=== PATIENT | female | born 1935 | race Caucasian/White ===

== ENCOUNTER → 2018-04-20 12:04 | Outpatient (CLI) | payer MEDICARE, SELFPAY ==
[2018-04-20 12:48] LABS: Albumin, Serum 4.1 g/dL (3.2-5.0); BUN 20 mg/dL (7-18); BUN/Creat Ratio 18.3 RATIO (10-20); Calcium,Total 8.7 mg/dL (8.5-10.1); Chloride 95 mmol/L (98-107); Creatinine, Serum 1.09 mg/dL (0.55-1.02); EST Glomerular Filtration Rate 51 mL/min (>60); Est Glom Filt Rate - Afr Amer 62 mL/min (>60); Glucose 101 mg/dL (74-106); Phosphorus 2.7 mg/dL (2.5-4.9); Potassium 4.2 mmol/L (3.5-5.1); Sodium Level 128 mmol/L (136-145)
[2018-04-20 13:04] LABS: Protein, Urine (Random) < 6.0 mg/dL (<11.9)
== END ==
PROVIDERS: Visit Provider Internal Medicine Nephrology
DX: E11.22 Type 2 diabetes mellitus with diabetic chronic kidney disease (principal); N18.9 Chronic kidney disease, unspecified; N17.9 Acute kidney failure, unspecified
CPT/HCPCS: 36415; 80069; 82570; 84156

== ENCOUNTER → 2018-05-02 12:27 | Outpatient (CLI) | payer MEDICARE, SELFPAY ==
[2018-05-02 16:32] LABS: Urine Sodium 43 mmol/L (Not Establ.)
[2018-05-02 16:37] LABS: Anion Gap 13 (5-15); BUN 18 mg/dL (7-18); BUN/Creat Ratio 17.1 RATIO (10-20); Calcium,Total 8.9 mg/dL (8.5-10.1); Chloride 99 mmol/L (98-107); Creatinine, Serum 1.05 mg/dL (0.55-1.02); EST Glomerular Filtration Rate 53 mL/min (>60); Est Glom Filt Rate - Afr Amer 65 mL/min (>60); Glucose 102 mg/dL (74-106); Potassium 3.9 mmol/L (3.5-5.1); Sodium Level 134 mmol/L (136-145)
== END ==
PROVIDERS: Visit Provider Internal Medicine Nephrology
DX: N17.9 Acute kidney failure, unspecified (principal); E87.1 Hypo-osmolality and hyponatremia
CPT/HCPCS: 36415; 80048; 84300

== ENCOUNTER → 2018-10-24 11:01 | Outpatient (CLI) | payer MEDICARE, SELFPAY ==
[2018-10-24 13:28] LABS: Urine Sodium 47 mmol/L (Not Establ.)
[2018-10-24 13:54] LABS: Albumin, Serum 4.3 g/dL (3.2-5.0); BUN 18 mg/dL (7-18); BUN/Creat Ratio 15.4 RATIO (10-20); Calcium,Total 9.1 mg/dL (8.5-10.1); Chloride 102 mmol/L (98-107); Creatinine, Serum 1.17 mg/dL (0.55-1.02); EST Glomerular Filtration Rate 47 mL/min (>60); Est Glom Filt Rate - Afr Amer 57 mL/min (>60); Glucose 94 mg/dL (74-106); Phosphorus 2.8 mg/dL (2.5-4.9); Potassium 3.9 mmol/L (3.5-5.1); Sodium Level 137 mmol/L (136-145)
--- OUTSIDE RECORDS SUMMARY | 2019-01-25 19:49 | XMS RPT_ITS ---
:1935 Author Organization OHIP Care Team Providers Name Role Phone Laurie Hopkins Attending Unavailable Laurie Hopkins Referring Unavailable Laurie Hopkins Primary Care Unavailable Laurie Hopkins Attending Unavailable Laurie Hopkins Referring Unavailable Laurie Hopkins Primary Care Unavailable Laurie Hopkins Referring Unavailable Laurie Hopkins Primary Care Unavailable Rene Coffey Attending Unavailable Cely Rader Attending Unavailable Cely Rader Attending Unavailable Cely Rader Attending Unavailable PROBLEMS PROBLEMS DATE TYPE CONDITION / CODE ATTENDING STATUS SOURCE 10/30/2018 Unknown E87.1 - Cely Rader Active [facility]-osmol[facility] and hyponatremia / Hospital E87.1(ICD-10) Repository 07/20/2018 Admitting Encntr screen Laurie Hopkins Active [facility] Diagnosis mammogram for System malignant neoplasm Repository of breast / Z12.31(ICD-10) 07/20/2018 Admitting Asymptomatic Laurie Hopkins Active [facility] Diagnosis menopausal state / System Z78.0(ICD-10) Repository 06/30/2018 Admitting Occlusion and Rene Coffey Active [facility] Diagnosis stenosis of System bilateral carotid Repository arteries / I65.23(ICD-10) 05/02/2018 Unknown N17.9 - Acute Cely Rader Active [place] kidney failure, Community unspecified / Hospital N17.9(ICD-10) Repository 11/30/2017 Admitting Pain in left foot Laurie Hopkins [facility] Diagnosis / M79.672(ICD-10) System Repository PROCEDURES PROCEDURES No Procedure Records FoundRESULTS RESULTS URINE SODIUM Collected: 10/24/2018 Status: F Source: [place] 11:10 AM [facility] TYPE CODE TESTS RESULT OUT OF RANGE REFERENCE UNITS LAB L501.5500 Not Establ. mmol/L Normal UR NA 47 Performed By: #### L501.5500 #### [facility] [address] [place], [address] RENAL PROFILE Collected: 10/24/2018 Status: F Source: [place] 11:02 AM [facility] [facility] TYPE CODE TESTS RESULT OUT OF RANGE REFERENCE UNITS LAB L501.0100 74-106 mg/dL Normal GLU 94 Result Comment: Please note revised GLUCOSE reference range effective 2017. LAB L501.1000 7-18 mg/dL Normal BUN 18 LAB L501.1100 0.55-1.02 mg/dL High CREAT,SERUM 1.17 Result Comment: The validity of the calculated GFR AND GFRAA in patients over 70 years has not been determined. Clinical correlation is essential. LAB L501.1110 >60 mL/min Low EST GFR 47 Result Comment: Non- GFR Calc LAB L501.1115 >60 mL/min Low EST GFR - AA 57 Result Comment: GFR Calc LAB L501.1300 10-20 RATIO Normal BUN/CRE 15.4 LAB L501.1800 3.2-5.0 g/dL Normal ALB 4.3 LAB L501.2200 8.5-10.1 mg/dL CA Normal 9.1 LAB L501.2300 2.5-4.9 mg/dL Normal PHOS 2.8 LAB L501.5300 136-145 mmol/L NA Normal 137 LAB L501.5600 3.5-5.1 mmol/L K Normal 3.9 LAB L501.5900 98-107 mmol/L CL Normal 102 LAB L501.6100 21.0-32.0 mmol/L Normal CO2 23.0 Performed By: #### L500.3600 #### [facility] [address] [place], [address] OT BONE DENSITY DEXA Observed: 07/21/2018 Status: F Source: [facility] AXIAL SKELETON 4:13 AM SYSTEM REPOSITORY Patient Name: RONNELL ESCALANTE Bone Density Exam Date/Time 07/20/2018 11:35:00 EDT Exam OT Bone Density DEXA Axial Skeleton Ordering Physician LAURIE HOPKINS Accession Number [id number] CPT4 Codes 83619 () Reason For Exam M85.80 Osteopenia Report DXA BONE DENSITOMETRY: CLINICAL INDICATION: Asymptomatic post-menopausal status COMPARISON: 05/13/2016 TECHNIQUE: Quantitative bone mineral densitometry of the hip and lumbar spine was performed with a dual energy x-ray observed absorptiometry device - HoloBuildFax QDR 4500 C. Regions of interest were obtained through the left proximal femur and compared to the normal value of the young adult. Regions of interest were also obtained through the lumbar vertebrae with an average value determined and compared with the young adult. The measured bone density minus the bone density of the young normal reference divided by the reference standard deviation is expressed as the T score. Using the same formula adjusting the reference density and standard deviation for age and race determines the Z score. According to World Health Organization criteria: T-score of -1.0 or higher is normal. T-score between -1.0 and -2.5 is low bone density or osteopenia. T-score of -2.5 or lower is abnormally low, compatible with osteoporosis. T-score of -2.5 or less plus fragility fracture indicates severe osteoporosis. FINDINGS: Hip: Femoral neck Density: 0.626 g/cm2. T-score: -2.0 Z-score: 0.4 Hip: Total hip Density: 0.688 g/cm2. T-score: -2.1 Z-score: 0.1 Comparison from prior examination: Decreased by 4.1 percent, which is significant Spine: L1-L3. L4 is excluded due to degenerative change of the endplate Density 0.853 g/cm2. T-score: -1.5 Z-score: 1.2 Comparison from prior examination: Decreased by 4.0 percent, which is significant IMPRESSION: Osteopenia FRACTURE RISK: The estimated 10 year risk for a hip fracture is 5.8 % and for a major osteoporosis-related fracture is 21 %. (FRAX web version 3.11). RECOMMENDATIONS: General recommendations for prevention of bone loss include: 5182-4591 mg calcium intake per day for adults >50yrs, and no history of renal calculi 800-1000 IU of vitamin D3 per day for adults >50yrs, and no history of renal calculi Weight bearing exercise Discontinue smoking Avoid excessive use of caffeine, soft drinks, and alcoholic beverages. In addition, balance training and fall prevention programs can help reduce the risk of fractures. Pharmacologic treatment recommendations: Initiate pharmacologic treatment in patients with: -Hip or vertebral fracture. -In those with T scores </= -2.5 at the femoral neck, total hip or lumbar spine by DXA -In postmenopausal women and men age 50 or older with low bone mass (T score between -1.0 and -2.5 [osteopenia]) at the femoral neck, total hip, or lumbar spine by DXA and a 10 year hip fracture probability >/= 3% or a 10 year major osteoporosis-related fracture probability >/= 20% based on the [place]-adapted WHO fracture risk model (FRAX). Current FDA-approved pharmacologic options for osteoporosis treatment include bisphosphonates (Fosamax), ibandronate (Boniva), risedronate (Actonel), zoledronic acid (Reclast), estrogens and other hormonal therapies (Evista), parathyroid hormone (Forteo), and denosumab (Prolia). Initiation of pharmacologic therapy should happen only after thorough medical evaluation, discussion of risks and benefits, and with regular monitoring of the therapeutic regimen. FOLLOW-UP RECOMMENDATIONS: Patients with osteoporosis or or at high risk for fracture should have follow-up bone density tests. For Medicare patients, routine testing is allowed every 2 years. Patients who have low bone mass (T score -2.0 to -2.49), who are currently on treatment for low bone mass, or having risk factors for accelerated bone loss (glucocorticoids, aromatase inhibitors, etc.), consider repeat DXA in 1-2 years. Patients with osteopenia and no risk factors may consider follow-up every 3-5 years. REFERENCES: National Osteoporosis Foundation. Clinician's Guide to Prevention and Treatment of Osteoporosis. Osteoporosis International. Chan[place], 2014. DXA Scan Screening, Reporting (FRAX Score) and Follow- up. [place] of Knowledge Evidence - based Summaries. [facility] jiffstore Education and Research. 2017 Report Dictated on Workstation: [id number] Final Dictating Physician: MD COFFEY JEFFREY Signed Date and Time: 07/21/2018 4:16 am Signed by: MD COFFEY JEFFREY Transcribed Date and Time: 07/21/2018 4:17 MG BREAST TOMOSYNTHESIS Observed: 07/20/2018 Status: F [facility] 12:00 AM SYSTEM REPOSITORY Patient Name: RONNELL ESCALANTE Mammography Exam Date/Time 07/20/2018 10:59:00 EDT Exam MG Breast Tomosynthesis BI Scr Ordering Physician LAURIE HOPKINS Accession Number [id number] CPT4 Codes 45369 (MG Breast Tomosynthesis Scr Bl), 88000 (MG MAMMO 2D SCREENING) Reason For Exam screening Report PATIENT HISTORY: Patient is postmenopausal. No known family history of cancer. Took estrogen for 20 years. Patient has never smoked. Patient's BMI is 23.4. TIME SINCE LAST MAMMOGRAM: Last mammogram was performed 1 year ago. REASON FOR EXAM: screening, asymptomatic. PROCEDURE: MG BREAST TOMOSYNTHESIS BL SCR: 2017 - 2D/3D Procedure 3D Bilateral CC and MLO view(s) were taken. 2D Bilateral CC and MLO view(s) were taken. Prior study comparison: July 18, 2017, bilateral MG mammogram digital screening performed at [facility]. May 13, 2016, bilateral screening mammogram performed at [facility]. May 05, 2015, bilateral screening mammogram performed at [facility]. April 30, 2014, bilateral screening mammogram, performed at [facility]. April 26, 2013, bilateral screening mammogram, performed at [facility]. March 17, 2012, bilateral screening mammogram, performed at [facility]. TISSUE DENSITY: There are scattered fibroglandular densities. . FINDINGS: No suspicious masses, architectural distortions or suspiciously clustered microcalcifications are identified. There are no significant changes when compared with prior studies. Markings on images: BB's = Nipples; skin lesions Open [place] = Palpable Line = Scar 2D digital mammography and tomosynthesis imaging were performed and reviewed with CAD. ASSESSMENT: Category 1 Negative No mammographic evidence of malignancy. RECOMMENDATION: Routine screening mammogram of both breasts in 1 year. . Report Dictated on Cancer Risk Assessment: This risk assessment is based on patient provided information collected in a risk survey taken at the time of this examination. Lifetime breast cancer risk: 4.1% - If greater than or equal to 20%, consider annual mammogram and annual screening Breast MRI or follow up in high risk clinic. Is the patient at elevated risk based on the HBOC criteria? No (Hereditary Breast and Ovarian Cancer) - If yes, consider genetic counseling and testing with high risk follow up. HNPCC mutation risk ([place] Syndrome): 1% - if greater than or equal to 5%, consider genetic counseling, testing and screening colonoscopy. Final Signed Date and Time: 07/21/2018 12:46 pm Signed by: MD OSULLIVAN KERISTEN L VL CAROTID DUPLEX Observed: 07/01/2018 Status: F Source: [facility] ULTRASOUND COMPLETE 7:20 PM SYSTEM REPOSITORY Patient Name: RONNELL ESCALANTE Ultrasound Exam Date/Time 06/30/2018 11:22:45 EDT Exam VL Carotid Duplex Ultrasound Complete Ordering Physician UNASSIGNED, UNASSIGNED Accession Number [id number] CPT4 Codes 00764 () Reason For Exam stenosis of carotid arteries Report BILATERAL CAROTID ULTRASOUND: CLINICAL INDICATION: Follow-up for carotid stenosis. TECHNIQUE: Two-dimensional, Color-flow and spectral Doppler sonography of the extracranial arterial circulation was performed. COMPARISON: 06/01/2017 and MRA from 06/14/2017 FINDINGS: RIGHT: Plaque: Moderate non-calcified and calcified plaque CCA peak systolic: 122 cm/sec CCA end diastolic: 20 cm/sec ICA peak systolic: 134 cm/sec ICA end diastolic: 35 cm/sec ICA/CCA ratio: 1.1 Estimated ICA stenosis: 50-69% ECA systolic: 183 cm/sec Vertebral: Antegrade LEFT: Plaque: Moderate non-calcified and calcified plaque CCA peak systolic: 108 cm/sec CCA end diastolic: 22 cm/sec ICA peak systolic: 177 cm/sec ICA end diastolic: 36 cm/sec ICA/CCA ratio: 1.6 Estimated ICA stenosis: 50-69% ECA systolic: 159 cm/sec Vertebral: Antegrade IMPRESSION: Flow velocities suggest 50-69 percent luminal narrowing within both proximal internal carotid arteries without significant change in one year, although the findings were not demonstrated on prior MRA. This radiologist maintains RVT certification. Reference: Measurement of carotid stenosis is a ratio based on conventional angiographic data from the NASCET trials with the smallest caliber of the internal carotid as the numerator and normal post-stenotic internal carotid caliber as denominator. Stenosis based upon Society of Radiologists in Ultrasound consensus: <50%: ICA PS <125 cm/sec, ICA ED <40 cm/sec, ICA/CCA ratio <2.0 50-69%: ICA PS 125-230 cm/sec , ICA ED 40-100 cm/sec, ICA/CCA ratio 2-4 >70%: ICA PS >230 cm/sec, ICA ED >100 cm/sec, ICA/CCA ratio >4 Report Dictated on Final Dictating Physician: MD COFFEY JEFFREY Signed Date and Time: 07/01/2018 7:23 pm Signed by: MD COFFEY JEFFREY Transcribed Date and Time: 07/01/2018 7:24 URINE SODIUM Collected: 05/02/2018 Status: F Source: [place] 12:30 PM [facility] TYPE CODE TESTS RESULT OUT OF RANGE REFERENCE UNITS LAB L501.5500 Not Establ. mmol/L Normal UR NA 43 Performed By: #### L501.5500 #### [facility] [address] [place], [address] BASIC METABOLIC Collected: 05/02/2018 Status: F Source: [place] PROFILE (BMP) 12:30 PM [facility] [place] TYPE CODE TESTS RESULT OUT OF RANGE REFERENCE UNITS LAB L501.0100 74-106 mg/dL Normal GLU 102 Result Comment: Fasting Glucose result from 100 to 125 mg/dL suggests IMPAIRED HOMEOSTASIS per A.D.A. criteria. Please note revised GLUCOSE reference range effective 2017. LAB L501.1000 7-18 mg/dL Normal BUN 18 LAB L501.1100 0.55-1.02 mg/dL High CREAT,SERUM 1.05 Result Comment: The validity of the calculated GFR AND GFRAA in patients over 70 years has not been determined. Clinical correlation is essential. LAB L501.1110 >60 mL/min Low EST GFR 53 Result Comment: Non- GFR Calc LAB L501.1115 >60 mL/min Normal EST GFR - AA 65 Result Comment: GFR Calc LAB L501.1300 10-20 RATIO Normal BUN/CRE 17.1 LAB L501.2200 8.5-10.1 mg/dL CA Normal 8.9 LAB L501.5300 136-145 mmol/L Low NA 134 LAB L501.5600 3.5-5.1 mmol/L K Normal 3.9 LAB L501.5900 98-107 mmol/L CL Normal 99 LAB L501.6100 21.0-32.0 mmol/L Normal CO2 22.0 LAB L501.6200 5-15 Normal GAP 13 Performed By: #### L500.2500 #### [facility] [address] [place], [address] RENAL PROFILE Collected: 04/20/2018 Status: F Source: [place] 12:05 PM [facility] TYPE CODE TESTS RESULT OUT OF RANGE REFERENCE UNITS LAB L501.0100 74-106 mg/dL Normal GLU 101 Result Comment: Fasting Glucose result from 100 to 125 mg/dL suggests IMPAIRED HOMEOSTASIS per A.D.A. criteria. Please note revised GLUCOSE reference range effective 2017. LAB L501.1000 7-18 mg/dL High BUN 20 LAB L501.1100 0.55-1.02 mg/dL High CREAT,SERUM 1.09 Result Comment: The validity of the calculated GFR AND GFRAA in patients over 70 years has not been determined. Clinical correlation is essential. LAB L501.1110 >60 mL/min Low EST GFR 51 Result Comment: Non- GFR Calc LAB L501.1115 >60 mL/min Normal EST GFR - AA 62 Result Comment: GFR Calc LAB L501.1300 10-20 RATIO Normal BUN/CRE 18.3 LAB L501.1800 3.2-5.0 g/dL Normal ALB 4.1 LAB L501.2200 8.5-10.1 mg/dL CA Normal 8.7 LAB L501.2300 2.5-4.9 mg/dL Normal PHOS 2.7 LAB L501.5300 136-145 mmol/L Low NA 128 LAB L501.5600 3.5-5.1 mmol/L K Normal 4.2 LAB L501.5900 98-107 mmol/L Low CL 95 LAB L501.6100 21.0-32.0 mmol/L Normal CO2 22.0 Performed By: #### L500.3600 #### [facility] [address] [place], [place], [address] PROTEIN+CREATININE Collected: Status: F [facility] PM [facility] TYPE CODE TESTS RESULT OUT OF RANGE REFERENCE UNITS LAB L501.1200 NO RANGE EST. mg/dL 17.90 Normal UR CREAT LAB L501.1930 <11.9 mg/dL < 6.0 Normal PROTEIN,UR. RAN. LAB L501.1940 0-200 mg/g CRE Test Normal not performed PROT:CRE RATIO Performed By: #### L501.0900 #### [facility] [address] [place], [place], [address] CR FOOT COMPLETE 3+ Observed: 11/30/2017 Status: F Source: [facility] VIEWS LEFT 8:03 PM SYSTEM REPOSITORY Patient Name: RONNELL ESCALANTE Diagnostic Radiology Exam Date/Time 11/30/2017 12:25:00 EST Exam CR Foot Complete 3+ Views Left Ordering Physician LAURIE HOPKINS Accession Number [id number] CPT4 Codes 87273 () Reason For Exam left foot pain Report Left foot 11/30/2017. Clinical Information: Pain. Findings: 3 weightbearing views of the left foot reveal of the bones to be well mineralized. There is no evidence of fracture or dislocation. No erosive or destructive changes are seen. No radiopaque foreign bodies or subcutaneous emphysema is identified. Impression: No acute process. Report Dictated on Final Dictating Physician: MD BROWN RISA Signed Date and Time: 11/30/2017 8:04 pm Signed by: MD BROWN RISA Transcribed Date and Time: 11/30/2017 8:05 ALLERGIES ALLERGIES No Allergies Records FoundENCOUNTERS ENCOUNTERS ADMIT/DISCHARGE ACCOUNT NUMBER ADMITTING ENCOUNTER LOCATION SOURCE CLASS 10/24/2018 [id number] [facility] ding:[id number] Repository 07/20/[id number] [facility] Repository 06/30/[id number] [facility] Repository 05/02/2018 [id number] [facility] ding:[id number] Repository 04/20/2018 [id number] [facility] ding:[id number] Repository 11/30/[id number] [facility] Repository PAYERS PAYERS ENCOUNTER GUARANTOR PAYER SUBSCRIBER SOURCE 10/24/2018 Ronnell Primary Insurance:LEOTNA Ronnell Chery [id number] MCRPolicy Number: BeichlerDOB: [place], ME[place] LUISAGFRFEffective [id number] Women[facility] [address]Wbw: Date:4242-05-17WN BOX [place] () [address]OQ: 10/24/2018 Secondary NOT GIVENUNK [facility] Insurance:SELF PAY [facility] INSURANCEPolicy Number: Hospital Effective Repository Date:2018-10-24 07/20/2018 Ronnell A Primary Ronnell A [facility] BeKathrynB: Insurance:AetnaSiomara BordenB: System [id number] Number: Effective Date: [id number] Repository [place], [place] [address]Gjl: () 06/30/2018 Ronnell A Primary [facility]lerD[facility] Insurance:AetnaPolicy BeichlerDOB: System [id number] Number: Effective Date: [id number] [place], [place] [address]Sgg: () 05/02/2018 Ronnell Primary Insurance:AETNA Ronnell [place] [id number] MCRPolicy Number: BeichlerDOB: [facility] [id number] Women's Hospital [address]Gqf: Date:[id number] BOX Repository [id number] [place] () [address]GH: 05/02/2018 Secondary NOT GIVENUNK [place] Insurance:SELF PAY Community INSURANCEPolicy Number: Hospital Effective Repository Date:2018-05-02 04/20/2018 Ronnell Primary Insurance:AETNA Ronnell [place] [id number] [facility]: BeichlerDOB: [facility] [id number] Women's Hospital [address]Rdk: Date:6115-61-13UI BOX Repository [address] [place] [address] [place] () [id number]: 04/20/2018 Secondary NOT GIVENUNK [facility] Insurance:SELF PAY Community INSURANCEPolicy Number: Hospital Effective Repository Date:2018-04-17 11/30/2017 Ronnell A Primary Ronnell A [facility] BeichlerDOB: Insurance:AetnaPolicy BeichlerDOB: System [id number] Number: Effective Date: [id number] Repository [place], [place] [address]Wdq: ()
== END ==
PROVIDERS: Visit Provider Internal Medicine Nephrology
DX: E87.1 Hypo-osmolality and hyponatremia (principal); N17.9 Acute kidney failure, unspecified
CPT/HCPCS: 36415; 80069; 84300

== ENCOUNTER → 2019-04-24 | Outpatient (CLI) | payer MEDICARE, SELFPAY ==
[2019-04-24 12:46] LABS: Albumin, Serum 3.7 g/dL (3.2-5.0); BUN 18 mg/dL (7-18); Calcium,Total 8.8 mg/dL (8.5-10.1); Chloride 96 mmol/L (98-107); EST Glomerular Filtration Rate 46 mL/min (>60); Est Glom Filt Rate - Afr Amer 55 mL/min (>60); Glucose 91 mg/dL (74-106); Phosphorus 3.3 mg/dL (2.5-4.9); Potassium 4.3 mmol/L (3.5-5.1); Sodium Level 131 mmol/L (136-145)
== END | disposition home or self-care (01) ==
LOC: POLAB3 10:44
PROVIDERS: Visit Provider Internal Medicine Nephrology
DX: N17.9 Acute kidney failure, unspecified (principal)
CPT/HCPCS: 36415; 80069

== ENCOUNTER → 2019-07-24 10:53 | Outpatient (CLI) | payer MEDICARE, SELFPAY ==
--- NOTE | 2019-07-24 10:57 | CDU_ITS ---
Reason For Study: Carotid stenosis Rt. Velocities/BP Lt. Velocities/BP Prox CCA 94.3/8.2 cm/sec. Prox CCA 117.4/13.3 cm/sec. Mid CCA 107.1/15.2 cm/sec. Mid CCA 102.8/13.3 cm/sec. Dist CCA 95.6/16 cm/sec. Dist CCA 75.3/12.6 cm/sec. Prox ICA 102.8/18.8 cm/sec. Prox ICA 149.9/22.6 cm/sec. Mid ICA 99.2/15.2 cm/sec. Mid ICA 134.5/22.6 cm/sec. Dist ICA 101.1/18.8 cm/sec. Dist ICA 87.6/16.3 cm/sec. Rt. ICA/CCA = 1.07. Lt. ICA/CCA = 1.46. Prox ECA 160.9/5 cm/sec. Prox ECA 253.2/7.4 cm/sec. Rt. Vert. 50.9/8 cm/sec. Lt. Vert. 88.2/13.3 cm/sec. Right Extracranial There is homogeneous, smooth atherosclerotic plaque noted in the right common carotid artery. There is heterogeneous, irregular atherosclerotic plaque noted in the right internal carotid artery. There is heterogeneous, irregular atherosclerotic plaque noted in the right external carotid artery. Antegrade flow is noted in the right vertebral artery. Left Extracranial There is homogeneous, smooth atherosclerotic plaque noted in the left common carotid artery. There is heterogeneous, irregular atherosclerotic plaque noted in the left internal carotid artery. There is heterogeneous, irregular atherosclerotic plaque noted in the left external carotid artery. The left external carotid artery is not well visualized. Antegrade flow is noted in the left vertebral artery. Procedure Carotid Duplex 28454. Exam performed in department. Interpretation Summary Mild (<50%) stenosis right extracranial internal carotid. Moderate (50-69%) stenosis left extracranial internal carotid. Flow within the vertebral arteries is antegrade bilaterally. Ordering Physician: Terence Viramontes Referring Physician: Toby Weaver Performed By: Ingrid Benjamin RVT
== END ==
PROVIDERS: Family Provider Internal Medicine; PCP Internal Medicine; Referring Provider Surgery Vascular Surgery; Visit Provider Surgery Vascular Surgery
DX: I65.23 Occlusion and stenosis of bilateral carotid arteries (principal); K21.9 Gastro-esophageal reflux disease without esophagitis; E07.9 Disorder of thyroid, unspecified; N28.9 Disorder of kidney and ureter, unspecified; E78.70 Disorder of bile acid and cholesterol metabolism, unspecified; I10 Essential (primary) hypertension; J45.909 Unspecified asthma, uncomplicated
CPT/HCPCS: 93880

== ENCOUNTER → 2019-11-26 11:48 | Outpatient (CLI) | payer MEDICARE, SELFPAY ==
[2019-11-26 14:28] LABS: Albumin, Serum 4.1 g/dL (3.2-5.0); BUN 15 mg/dL (7-18); BUN/Creat Ratio 13.2 RATIO (10-20); Calcium,Total 9.2 mg/dL (8.5-10.1); Chloride 101 mmol/L (98-107); Creatinine, Serum 1.14 mg/dL (0.55-1.02); EST Glomerular Filtration Rate 48 mL/min (>60); Est Glom Filt Rate - Afr Amer 59 mL/min (>60); Glucose 102 mg/dL (74-106); Phosphorus 3.1 mg/dL (2.5-4.9); Potassium 3.9 mmol/L (3.5-5.1); Sodium Level 133 mmol/L (136-145)
[2019-11-26 14:38] LABS: Microalbumin,Random Urine 5.2 mg/L (NO RANGE EST.); Microalbumin:Creatinine Ratio 15.4 mg/g CRE (<30 mg/g CRE)
== END ==
PROVIDERS: PCP Internal Medicine; Visit Provider Internal Medicine Nephrology
DX: E11.22 Type 2 diabetes mellitus with diabetic chronic kidney disease (principal); N18.3 Chronic kidney disease, stage 3 (moderate)
CPT/HCPCS: 36415; 80053; 80069; 82043; 82306; 82570; 84443

== ENCOUNTER → 2020-07-31 11:11 | Outpatient (CLI) | payer MEDICARE, SELFPAY ==
[2020-07-31 12:51] LABS: Urine Sodium 56 mmol/L (Not Establ.)
== END ==
PROVIDERS: PCP Internal Medicine; Visit Provider Internal Medicine Nephrology
DX: E87.1 Hypo-osmolality and hyponatremia (principal)
CPT/HCPCS: 84300

== ENCOUNTER → 2021-03-26 10:20 | Outpatient (CLI) | payer MEDICARE, SELFPAY ==
[2021-03-26 12:45] LABS: Albumin, Serum 3.5 g/dL (3.2-5.0); BUN 19 mg/dL (7-18); Calcium,Total 8.4 mg/dL (8.5-10.1); Chloride 103 mmol/L (98-107); EST Glomerular Filtration Rate 56 mL/min (>60); Est Glom Filt Rate - Afr Amer 68 mL/min (>60); Glucose 101 mg/dL (74-106); Phosphorus 3.1 mg/dL (2.5-4.9); Potassium 3.7 mmol/L (3.5-5.1); Sodium Level 134 mmol/L (136-145)
== END ==
PROVIDERS: PCP Internal Medicine; Visit Provider Internal Medicine Nephrology
DX: N18.30 Chronic kidney disease, stage 3 unspecified (principal)
CPT/HCPCS: 36415; 80069